=== PATIENT | female | born 1995 | race Caucasian/White ===

== ENCOUNTER 2016-11-08 12:23 | Emergency (ER) | payer BC ==
[~2016-11-08] VITALS: Ht 157.5 cm; Wt 53.2 kg
[2016-11-08 12:36] VITALS: BP 127/75; TEMP 99
[2016-11-08 13:55] LABS: BASO % 0.3 % (0.0-2.0); EOS % 0.4 % (0-4.0); GRAN # 5.4 (1.4-6.5); GRAN % 71.5 % (42.2-75.2); HEMATOCRIT 42.6 % (37.0-47.0); HEMOGLOBIN 14.6 g/dl (12.5-16.0); LYMPH # 1.5 (1.2-3.4); LYMPH % 19.5 % (20.0-51.0); MEAN CELL VOLUME 89 fl (80.0-100.0); MEAN CORPUSCULAR HEMOGLOBIN 30 pg (27.0-31.0); MEAN CORPUSCULAR HGB CONC 34 g/dl (33.0-37.0); MEAN PLATELET VOLUME 10.2 fl (7.4-10.4); MONO # 0.6 (0.1-0.6); MONO % 8.3 % (1.7-9.3); PLATELET COUNT 208 K/mm3 (130-400); RED BLOOD COUNT 4.81 M/mm3 (4.10-5.30); REDCELL DISTRIBUTION WIDTH-CV 12.3 % (11.5-14.5); WHITE BLOOD COUNT 7.6 K/mm3 (4.8-10.8)
[2016-11-08 14:05] LABS: ADJUSTED CALCIUM 8.7 mg/dL (8.4-10.2); ALANINE AMINOTRANSFERASE 31 U/L (9-52); ALBUMIN 4.5 gm/dL (3.5-5.0); ALKALINE PHOSPHATASE 73 U/L (50-136); ANION GAP 13 mmol/L (7-16); BILIRUBIN,TOTAL 2.3 mg/dL (0.0-1.0); BLOOD UREA NITROGEN 13 mg/dL (7-17); CALCIUM 9.1 mg/dL (8.4-10.2); CARBON DIOXIDE 22 mmol/L (22-30); CHLORIDE 102 mmol/L (98-107); CREATININE, serum 0.72 mg/dL (0.52-1.25); GLUCOSE 77 mg/dL (74-106); POTASSIUM 3.7 mmol/L (3.4-5.0); SODIUM 138 mmol/L (137-145); TOTAL PROTEIN 7.5 gm/dL (6.4-8.2)
[2016-11-08 14:12] LABS: PH 6 (5-8); URINE APPEARANCE Clear; URINE BACTERIA None Seen /hpf; URINE BILIRUBIN Negative (NEGATIVE); URINE BLOOD Negative (NEGATIVE); URINE COLOR Yellow; URINE GLUCOSE Negative (NEGATIVE); URINE KETONE 1+ (NEGATIVE); URINE RBC 0-2 /hpf; URINE UROBILINOGEN Negative (NEGATIVE); URINE WBC 0-2 /hpf
[2016-11-08 15:04] VITALS: PULSE 76
== END 2016-11-08 15:05 | disposition home or self-care (01) ==
LOC: COL.ER 12:23
PROVIDERS: Nurse Practitioner
DX: R10.84 Generalized abdominal pain (principal); N64.4 Mastodynia; R51 Headache; Z97.5 Presence of (intrauterine) contraceptive device

== ENCOUNTER 2019-06-05 23:58 | Inpatient (IN) | payer OTHER ==
[~2019-06-05] VITALS: Ht 160 cm; Wt 66.4 kg
[2019-06-06] VITALS (52 sets, daily range): BP systolic 88–138; BP diastolic 50–95; PULSE 66–137; TEMP 98.3–99.7
--- NOTE | 2019-06-06 00:05 | NUR ---
G1L0 40-5. Ambulatory to LDR 5 with family. Clean gown on. EFM and TOCO explained and applied. Pt states she thinks her water broke at 2300 tonight, clear fluid noted. Pt states she has been having irregular contractions since then. Denies vaginal bleeding. Reports good movement. SVE 2-3/70/-2, Amniotest positive with large amount of clear fluid noted. Pericare provided and pads changed. Plan of care explained to pt. VS and assessment completed. 0027: updated on pts status and admit orders received. See physican notification. Pt updated on plan of care and new orders per provider. 0045: IV started and labs obtained via IV site. LR bolus infusing without difficulties. Call light within reach. 0106: FHR strip reactive. Pt off monitor to ambulate. Plan of care explained.
[2019-06-06] MEDS ORDERED: PRENATAL MVI PO (00:18)
[2019-06-06 02:23] LABS: BASO % 0.4 % (0.0-2.0); EOS # 0.1 (0.0-0.7); EOS % 0.8 % (0-4.0); GRAN # 5.2 (1.4-6.5); GRAN % 62.1 % (42.2-75.2); HEMATOCRIT 38.4 % (37.0-47.0); LYMPH # 2.2 (1.2-3.4); MEAN CELL VOLUME 87 fl (80.0-100.0); MEAN CORPUSCULAR HEMOGLOBIN 29 pg (27.0-31.0); MEAN CORPUSCULAR HGB CONC 34 g/dl (33.0-37.0); MEAN PLATELET VOLUME 11.6 fl (7.4-10.4); MONO # 0.9 (0.1-0.6); MONO % 10.3 % (1.7-9.3); PLATELET COUNT 233 K/mm3 (130-400); RED BLOOD COUNT 4.44 M/mm3 (4.10-5.30); REDCELL DISTRIBUTION WIDTH-CV 13.1 % (11.5-14.5)
--- NOTE | 2019-06-06 07:00 | NUR ---
Pt request whirlpool. Reactive FHR strip obtained. VSS. [facility] temp 99.1 degrees F. SVE /-2.
--- NOTE | 2019-06-06 07:30 | NUR ---
RN at bedside. Pt up to bathroom. VSS. FHR 145. Ctx q 2-3 minutes. Whirlpool temp 100.1 degrees F.
--- NOTE | 2019-06-06 07:55 | NUR ---
Pt out of whirlpool and back to bed. Requesting epidural. Liam Heard CRNA notified.
--- NOTE | 2019-06-06 08:29 | NUR ---
Pt sitting upright for epidural placement. Late deceleration noted with contraction during single shot. FHR spontaneously returns to 145 FHR. Pt updated on POC. Safety reviewed. Bed locked in low position. Call light within reach. No questions or concerns at this time.
--- NOTE | 2019-06-06 12:40 | NUR ---
Dr. Piña at bedside. SVE per provider /2. Orders to start pitocin per protocol. See EMAR.
--- NOTE | 2019-06-06 16:05 | NUR ---
Dr. Piña at bedside. SVE per provider C/+2. Orders to begin pushing. Physician remains on unit. Pt prepped for delivery and coached on pushing. Moves vertex well. 1655- of viable female infant attended by Dr. Piña. Cord clamped x 2 and cut from umbilicus. Infant bulb suctioned, dried and placed on mother's abdomen. Care of to Rin Layne RN. Apgars 8/9/9. 1700- of placenta. Fundus firm at umbilicus. Bleeding WNL. Pitocin bolus infusing per protocol. First degree laceration repair by physician. Pericare performed. Ice pack applied. Bed locked in low position. Call light within reach. Pt updated on POC. Safety reviewed. No questions or concerns at this time.
[2019-06-07 06:02] VITALS: BP 105/67; PULSE 72; TEMP 98.2
[2019-06-07 08:10] LABS: HEMOGLOBIN 11.3 g/dl (12.5-16.0)
[2019-06-07] MEDS ORDERED: IBU600 MG PO (08:20)
[2019-06-07 08:24] LABS: HEMATOCRIT 33.9 % (37.0-47.0)
[2019-06-07 08:48] VITALS: BP 104/64; PULSE 83; TEMP 97.5
[2019-06-07 16:43] VITALS: BP 103/62; PULSE 62; TEMP 98
[2019-06-07 20:00] VITALS: BP 115/75; PULSE 57; TEMP 97.7
[2019-06-08 09:00] VITALS: BP 111/64; PULSE 66; TEMP 98.7
== END 2019-06-08 12:00 | disposition home or self-care (01) | DRG 807 ==
LOC: LDRO 23:58 → LDR 06-06 00:26 → OB 06-06 19:50
PROVIDERS: Obstetrics & Gynecology; ADMIT Obstetrics & Gynecology
PROC: 10E0XZZ Delivery of Products of Conception, External Approach (ICD-10-PCS; principal; 2019-06-06)
PROC: 0HQ9XZZ Repair Perineum Skin, External Approach (ICD-10-PCS; 2019-06-06)
DX: O70.0 First degree perineal laceration during delivery (principal); Z37.0 Single live birth; Z3A.39 39 weeks gestation of pregnancy
CPT/HCPCS: J2590; J2795; J7120